=== PATIENT | male | born 1975 | race Caucasian/White ===

== ENCOUNTER 2020-07-22 04:33 | Emergency (ER) | payer MEDICAID, SELFPAY ==
[2020-07-22 05:29] VITALS: BP 208/41; PULSE 80; RESP 18; TEMP 36.3; O2SAT 98; BMI 24.3
--- NOTE | 2020-07-22 07:31 | ED.GENADULT ---
HPI - General Adult General Chief complaint: Neck Pain/Injury Stated complaint: Neck pain Time Seen by Provider: 07/22/20 06:43 Source: patient Mode of arrival: ambulatory Limitations: no limitations History of Present Illness HPI narrative: 45-year-old male who presents emergency department for evaluation of bilateral neck and shoulder pain. Patient states that yesterday at around 10:30 p.m. he developed pain in both sides of his neck, right greater than left. He states they did not do anything strenuous the previous day or during that day, he did not have any recent injury. He states the pain got progressively worse. He states that he woke up this morning at 3:30 a.m. with severe pain in both sides his neck. He describes the pain as a constant, sharp, spasm like pain which is 10/10 at its worst, the pain is worse with movement. He denied any numbness or weakness of his upper extremities. Patient states he has a history of chronic pain in his shoulders and has been in a pain management clinic in the past, however secondary to COVID he has stopped all his medications since he has not had any recent appointments. States that in the past he has taken muscle relaxants, tramadol, Percocet, and gabapentin for chronic pain. States however this pain is different and is in his neck and not his shoulders. He denied fever, chills, chest pain, shortness of breath, cough, myalgias, arthralgias, diarrhea, loss of sense of taste or smell. Related Data Previous Rx's Medication Instructions Recorded cyclobenzaprine 10 mg PO TID PRN #20 tab 07/22/20 oxycodone 5 mg PO Q4H PRN #14 tab 07/22/20 Allergies Allergy/AdvReac Type Severity Reaction Status Date / Time No Known Allergies Allergy Verified 07/22/20 05:34 Review of Systems Review of Systems: Yes all other systems are reviewed and are negative Neurologic: Reports Abnormal speech present COUNT INCLUDES THE [facility] Past Medical History COUNT INCLUDES THE [facility] Narrative: Patient has a history of chronic pain in his shoulders, he had a severe orthopedic injury to his right forearm when he was 12 years old required surgery, he does smoke cigarettes, he denies drug and alcohol use. Medical History Patient denies significant medical history Surgical History History of surgery on arm Social History Social History Advance Directives: No Advance Directives Information Provided: No Physical Exam Vital Signs: Vital Signs: Last Vital Signs Temp 97.3 F 07/22/20 05:29 Pulse 80 07/22/20 05:29 Resp 18 07/22/20 05:29 BP 208/41 H 07/22/20 05:29 Pulse Ox 98 07/22/20 05:29 Body Mass Index 24.3 Const: General: cooperative, healthy appearing and acute distress moderate (Secondary to neck pain) Orientation/consciousness: oriented to person and oriented to place Limitations: no limitations HENMT: Head: Yes normal to inspection, Yes normocephalic and Yes atraumatic Ears: external ears normal General nose exam: Normal external nose present Face and sinus: Yes normal facial exam Mouth: Normal oral and palatal mucosa present Throat: Yes posterior oropharynx normal Eyes: Periorbital: periorbital findings normal Eyelids: Yes eyelids normal Conjunctivae: conjunctivae normal Sclerae: sclerae normal Corneas: corneas normal Pupils: Equal, round and reactive pupils present Direct Ophthalmoscopy: normal light reflex Neck: Neck: Yes no lymphadenopathy, Yes trachea midline and Yes tender (Moderate, bilateral trapezius muscles, positive spasm) Thyroid: Thyroid normal Chest: Chest palpation & inspection: normal inspection of the chest and normal palpation of entire chest wall Resp: Effort & Inspection: normal respiratory effort and able to speak in complete sentences Auscultation: clear to auscultation bilaterally Cardio: Rate: regular rate Rhythm: regular rhythm Heart sounds: S1 normal heart sound present, S2 normal heart sound present and no murmurs GI: Inspection: Yes normal to inspection Palpation (GI): Soft to palpation, nontender, no guarding, not rigid and No hepatosplenomegaly present : General: Yes no CVA tenderness Back/Spine/Pelvis: Back: no CVA tenderness Cervical Spine: normal cervical lordosis Thoracic/Lumbar Spine: thoracic and lumbar spine normal to inspection Skin: Lesions: no lesions Rashes: no rashes Wounds: no wounds Neuro: General: oriented to person and oriented to place Cranial nerves: Yes CN's II-XII intact bilaterally and Yes Equal, round and reactive pupils present Cognition (Neuro): normal cognition Speech: Abnormal speech present Motor exam (neuro): 5/5 motor strength present throughout Extrem: General: Yes normal to inspection and Yes full ROM Psych: Appearance: well kempt Mental Status: mental status grossly normal Speech and movement: Normal speech and movement present Affect: normal affect Attitude: cooperative Thought process: Normal thought process present Thought content: Normal thought content present Course Course Course Narrative: 45-year-old male with a history of chronic pain to both shoulders who presents emergency department with bilateral neck pain which began yesterday at 10:30 p.m. and became progressively worse this morning. Physical examination revealed him and he was in [id number] distress secondary to his neck pain. Patient had bilateral trapezius muscle tenderness with spasm and a normal neurologic exam. The patient has had no systemic symptoms, numbness or weakness. His presentation is consistent with bilateral muscle strain with spasm. The patient was treated with Toradol 60 mg IM. He was given prescriptions for Flexeril and oxycodone. He is advised to take ibuprofen and Tylenol as well. He was given printed instructions and verbal instructions and neck pain and discharged home. [place] PAT was searched and the patient had 1 prescription for gabapentin in the last year otherwise no concerning prescription pattern noted. Discharge Plan Discharge Clinical Impression: Muscle spasms of neck Strain of neck muscle Qualifiers: Encounter type: initial encounter Qualified Code(s): S16.1XXA - Strain of muscle, fascia and tendon at neck level, initial encounter Patient Disposition: Home, Self-Care Instructions: Cervical Strain (ED) Additional Instructions: Neck Pain Discharge Instructions: Take Motri(ibuprofen) 200 mg pills, 3 pills every 6 hours as needed for pain. Take Tyleno(acetaminophen) 325 mg pills, 2 pills every 4 hours as needed for pain. Take Flexerl(cyclobenzaprine) 10 mg pills, 1 pill every 8 hours as needed for pain or muscle spasm. This is a prescription medication. This medication will make you sleepy, therefore do not drive or work while taking this medication. For pain not relieved by the above medications you can also take oxycodone 5 mg pills, 1 pill every 4-6 hours as needed for pain. This medication is addicting, do not get this medication filled if you have problems with narcotic addiction. Also, you can ask the pharmacist for less pills than prescribed if you are worried about addiction. Apply ice for 15 minutes to the area that hurts on your neck, then apply a heating a pad on low for 15 minutes. Do this 4-6 times a day to help reduce the pain in your neck. Continue with normal activities as tolerated since staying in bed and not moving around will make your pain worse. Please return to the Emergency Department or see your doctor immediately if your symptoms get worse or if you develop any new symptoms that are concerning you. Follow up with your doctor in 2 day. Please read the other printed discharge instructions on neck pain. Prescriptions: New cyclobenzaprine 10 mg tablet 10 mg PO TID PRN (Reason: muscle pain or spasm) Qty: 20 RF: 0 oxycodone 5 mg tablet 5 mg PO Q4H PRN (Reason: pain) Qty: 14 RF: 0
[2020-07-22 07:47] VITALS: BP 137/85; PULSE 88
[2020-07-22] MEDS: Ketorolac Tromethamine 30 MG/ML VIAL 60 MG IM (07:48)
--- NOTE | 2020-07-22 07:48 | PC.NURSE ---
SEEN BY ATTENDING WITH USE OF [employer]. MEDICATED PER ORDERS. PLAN IS FOR DC SHORTLY.
== END 2020-07-22 08:18 | disposition home or self-care (01) ==
PROVIDERS: Emergency Provider Emergency Medicine Emergency Medical Services
DX: S16.1XXA Strain of muscle, fascia and tendon at neck level, initial encounter (principal); M54.2 Cervicalgia; M25.512 Pain in left shoulder; M25.511 Pain in right shoulder; X58.XXXA Exposure to other specified factors, initial encounter; Y93.9 Activity, unspecified; Y92.9 Unspecified place or not applicable; Y99.9 Unspecified external cause status; Z79.899 Other long term (current) drug therapy
CPT/HCPCS: 96372; 99283; 99284; J1885

== ENCOUNTER 2020-09-10 13:13 | Outpatient (REF) | payer MEDICAID, SELFPAY ==
[2020-09-10 15:38] LABS: SARS COV2 PCR INHOUSE NEGATIVE (Negative)
== END 2020-09-10 13:14 | disposition home or self-care (01) ==
LOC: HO.LAB 13:13
PROVIDERS: Visit Provider Internal Medicine
DX: Z20.822 Contact with and (suspected) exposure to COVID-19 (principal)
CPT/HCPCS: C9803; U0003